=== PATIENT | male | born 1945 | race Caucasian/White ===

== ENCOUNTER 2023-04-20 15:00 | Inpatient (IN) | payer OTHER ==
[~2023-04-20] VITALS: Ht 180.3 cm; Wt 81.6 kg
[2023-04-20 15:03] VITALS: BP 132/64; PULSE 80; RESP 18; TEMP 98.1; O2SAT 96
[2023-04-20 16:40] LABS: BILIRUBIN,URINE NEGATIVE (NEGATIVE); BLOOD, URINE TRACE-I (NEGATIVE); LEUKOCYTE ESTERASE ,URINE 2+ (NEGATIVE); NITRITE, URINE NEGATIVE (NEGATIVE); PH,URINE 8.5 (5.0-9.0); PROTEIN,URINE 3+ (NEGATIVE); UGLUCOSE NEGATIVE (NEGATIVE)
[2023-04-20 16:56] LABS: APPEARANCE,URINE CLOUDY (CLEAR); BACTERIA,URINE >30 (MANY) /HPF (None Seen); COLOR,URINE AMBER (YELLOW)
[2023-04-20 16:57] LABS: CALCIUM OXALATE CRYSTALS,UR 0-10 /HPF (None Seen); CYSTINE CRYSTALS,URINE 0-10 /HPF (None Seen); MUCUS,URINE 1+ /LPF (None Seen); SQUAMOUS EPITHELIAL CELL,UR 0-3 (FEW) /LPF (0-3 (FEW)); TRIPLE PHOSPHATE CRYSTAL,UR 0-10 /HPF (None Seen); URIC ACID CRYSTALS,URINE 0-10 /HPF (None Seen)
[2023-04-20 17:06] LABS: BASOPHILS % (AUTO) 0.4 % (0.0-2.0); EOSINOPHILS # (AUTO) 0.1 K/uL (0-0.4); EOSINOPHILS % (AUTO) 1.2 % (0.0-4.0); HEMATOCRIT 45.5 % (36-52); LYMPHOCYTES # (AUTO) 2.1 K/uL (2.0-11.5); LYMPHOCYTES % (AUTO) 37.6 % (20.5-51.1); MEAN CORPUSCULAR HEMOGLOBIN 30 pg (27-31); MEAN CORPUSCULAR HGB CONC 33 g/dL (33-37); MEAN CORPUSCULAR VOLUME 91.1 fL (80-94); MONOCYTES # (AUTO) 0.5 K/uL (0.8-1.0); MONOCYTES % (AUTO) 8.6 % (1.7-9.3); NEUTROPHILS # (AUTO) 2.9 K/uL (1.8-7.7); NEUTROPHILS % (AUTO) 52.2 % (42.2-75.2); PLATELET COUNT (AUTO) 173 K/uL (140-450); RED BLOOD CELL COUNT(AUTO) 4.99 MIL/uL (4.20-6.10); RED CELL DISTRIBUTION WIDTH 15.3 % (11.6-13.7); WHITE BLOOD COUNT (AUTO) 5.6 K/uL (4.8-10.8)
[2023-04-20 17:09] LABS: ANION GAP 11.7 (8-16); CALCIUM 9.2 mg/dL (8.5-10.1); CARBON DIOXIDE 25.9 mmol/L (21-32); CHLORIDE 104 mmol/L (98-107); CREATININE 1.2 mg/dL (0.6-1.3); GLUCOSE 125 mg/dL (74-106); POTASSIUM 3.6 mmol/L (3.5-5.1); SODIUM SERUM 138 mmol/L (136-145); UREA NITROGEN, BLOOD 13 mg/dL (7-18)
[2023-04-20 17:18] LABS: CALCIUM 9.2 mg/dL (8.5-10.1); PHOSPHORUS 2.1 mg/dL (2.5-4.9)
[2023-04-20 17:21] VITALS: O2SAT 96
[2023-04-20] MEDS ORDERED: PRAV80TA17 PO (18:31)
[2023-04-20] MEDS ORDERED: TAMS0.4C96 PO (18:31)
[2023-04-20] MEDS ORDERED: FINA-54 PO (18:31)
[2023-04-20] MEDS ORDERED: FLEPED RC (18:31)
[2023-04-20] MEDS ORDERED: DOCU-299 PO (18:31)
[2023-04-20] MEDS ORDERED: ATRN INH (18:31)
[2023-04-20] MEDS ORDERED: MULT-1328 PO (18:31)
[2023-04-20] MEDS ORDERED: ASPI-1822 PO (18:31)
[2023-04-20] MEDS ORDERED: ASCO500T95 PO (18:31)
[2023-04-20] MEDS ORDERED: GLUC1VIA (18:31)
[2023-04-20] MEDS ORDERED: AMLO-309 PO (18:31)
[2023-04-20] MEDS ORDERED: SCOP0.333 TP (18:31)
[2023-04-20] MEDS ORDERED: ALLO100T21 PO (18:31)
[2023-04-20] MEDS ORDERED: MAGN400S60 PO (18:31)
[2023-04-20] MEDS ORDERED: CRAN450T5 PO (18:31)
[2023-04-20] MEDS ORDERED: LEVO0.124 PO (18:31)
[2023-04-20] MEDS ORDERED: MULT-1868 PO (18:31)
[2023-04-20] MEDS ORDERED: POTA10TA70 PO (18:31)
[2023-04-20] MEDS ORDERED: SLIDE SUBQ (18:31)
[2023-04-20] MEDS ORDERED: cefTRIAXone 1,000 MG VIAL ONE (18:43)
[2023-04-20 22:00] VITALS: BP 146/70; PULSE 78; RESP 18; TEMP 97.6; O2SAT 98
[2023-04-20] MEDS ORDERED: HYDROcodone/APAP 5/325 MG 1 TAB TAB PO PRN (22:00)
[2023-04-20] MEDS ORDERED: ACETAMINOPHEN 325 MG TAB PO PRN (22:00)
[2023-04-20] MEDS ORDERED: SODIUM PHOSPHATE PEDIATRIC 67.5 ML ENEM RC PRN (22:00)
[2023-04-20] MEDS ORDERED: LORazepam 2 MG/ML VIAL IVP PRN (22:00)
[2023-04-20 23:00] VITALS: PULSE 78; RESP 18
[2023-04-21] MEDS ORDERED: IPRATROPIUM 0.02% 0.5 MG/2.5 ML NEBU INH SCH
[2023-04-21 04:06] VITALS: BP 127/69; PULSE 88; RESP 16; TEMP 98.2; O2SAT 99
[2023-04-21] MEDS: LEVOTHYROXINE 0.025 MG TAB PO SCH (05:37)
[2023-04-21 06:56] LABS: BASOPHILS % (AUTO) 0.4 % (0.0-2.0); EOSINOPHILS % (AUTO) 0.4 % (0.0-4.0); HEMATOCRIT 38.5 % (36-52); HEMOGLOBIN 12.8 g/dL (12.0-18.0); LYMPHOCYTES # (AUTO) 1.7 K/uL (2.0-11.5); LYMPHOCYTES % (AUTO) 31.6 % (20.5-51.1); MEAN CORPUSCULAR HEMOGLOBIN 30 pg (27-31); MEAN CORPUSCULAR HGB CONC 33 g/dL (33-37); MEAN CORPUSCULAR VOLUME 90.4 fL (80-94); MONOCYTES # (AUTO) 0.5 K/uL (0.8-1.0); MONOCYTES % (AUTO) 9.2 % (1.7-9.3); NEUTROPHILS # (AUTO) 3.1 K/uL (1.8-7.7); NEUTROPHILS % (AUTO) 58.4 % (42.2-75.2); PLATELET COUNT (AUTO) 176 K/uL (140-450); RED BLOOD CELL COUNT(AUTO) 4.26 MIL/uL (4.20-6.10); RED CELL DISTRIBUTION WIDTH 15.1 % (11.6-13.7); WHITE BLOOD COUNT (AUTO) 5.3 K/uL (4.8-10.8)
[2023-04-21] MEDS ORDERED: SODIUM PHOSPHATE 118 ML ENEM RC PRN (07:20)
[2023-04-21 07:36] LABS: ANION GAP 16.5 (8-16); CALCIUM 8.4 mg/dL (8.5-10.1); CARBON DIOXIDE 21.7 mmol/L (21-32); CHLORIDE 106 mmol/L (98-107); CREATININE 1.2 mg/dL (0.6-1.3); GLUCOSE 140 mg/dL (74-106); POTASSIUM 3.2 mmol/L (3.5-5.1); SODIUM SERUM 141 mmol/L (136-145); UREA NITROGEN, BLOOD 14 mg/dL (7-18)
[2023-04-21] MEDS ORDERED: NON-FORMULARY ITEM (Cranberry Fruit (Cranberry) 1 TAB) PO SCH (09:00)
[2023-04-21] MEDS ORDERED: AMLODIPINE PO SCH (09:00)
[2023-04-21] MEDS ORDERED: NON-FORMULARY ITEM (Multivitamin with Minerals (Multivitamins with Minerals) 1 TAB) PO SCH (09:00)
[2023-04-21] MEDS ORDERED: POTASSIUM CHLORIDE 10 MEQ TABER PO SCH ×2 (09:00)
[2023-04-21] MEDS ORDERED: CALCIUM GLUC 1 GM/50 mL NS BAG 50 ML IV SCH (09:00)
[2023-04-21] MEDS ORDERED: ATORVASTATIN PO SCH (09:00)
[2023-04-21] MEDS: ATORVASTATIN 20 MG TAB PO SCH (09:01)
[2023-04-21] MEDS: allopurinoL 100 MG TAB PO SCH (09:02)
[2023-04-21] MEDS: TAMSULOSIN 0.4 MG CAP PO SCH (09:02)
[2023-04-21] MEDS: amLODIPine 5 MG TAB PO SCH (09:02)
[2023-04-21] MEDS: ASPIRIN 81 MG TAB.CHEW PO SCH (09:03)
[2023-04-21] MEDS: FINASTERIDE 5 MG TAB PO SCH (09:04)
[2023-04-21] MEDS: MULTIVITAMIN/MINERALS 1 TAB PO SCH (09:04)
[2023-04-21] MEDS: MAGNESIUM HYDROXIDE 2400 MG/30 ML UDC PO SCH (09:14)
[2023-04-21] MEDS: DOCUSATE SODIUM 100 MG GELCAP PO SCH (09:15)
[2023-04-21] MEDS ORDERED: CRUSHER, PILL MC ONE (09:18)
[2023-04-21] MEDS: ASCORBIC ACID 500 MG TAB PO SCH (09:19)
[2023-04-21 10:46] VITALS: PULSE 79; RESP 18; O2SAT 98
[2023-04-21 10:57] VITALS: BP 150/71; PULSE 79; RESP 18; TEMP 98.1; O2SAT 98
[2023-04-21] MEDS: POTASSIUM CHLORIDE 10 MEQ TABER PO SCH ×2 (13:18→13:19)
[2023-04-21 17:48] VITALS: BP 150/71; PULSE 79; RESP 18; TEMP 98.1; O2SAT 98
[2023-04-21 20:00] VITALS: BP 135/60; PULSE 72; RESP 18; TEMP 97.7; O2SAT 100; O2SAT 72
[2023-04-22 02:08] VITALS: BP 135/60; PULSE 72; RESP 18; TEMP 97.7; O2SAT 100
[2023-04-22] MEDS: LEVOTHYROXINE 0.025 MG TAB PO SCH (06:10)
[2023-04-22 06:49] LABS: BASOPHILS % (AUTO) 0.4 % (0.0-2.0); EOSINOPHILS % (AUTO) 0.7 % (0.0-4.0); HEMATOCRIT 38.2 % (36-52); HEMOGLOBIN 12.7 g/dL (12.0-18.0); LYMPHOCYTES # (AUTO) 1.5 K/uL (2.0-11.5); LYMPHOCYTES % (AUTO) 22.2 % (20.5-51.1); MEAN CORPUSCULAR HEMOGLOBIN 30 pg (27-31); MEAN CORPUSCULAR HGB CONC 33 g/dL (33-37); MEAN CORPUSCULAR VOLUME 90.3 fL (80-94); MONOCYTES # (AUTO) 0.6 K/uL (0.8-1.0); MONOCYTES % (AUTO) 8.5 % (1.7-9.3); NEUTROPHILS # (AUTO) 4.5 K/uL (1.8-7.7); NEUTROPHILS % (AUTO) 68.2 % (42.2-75.2); PLATELET COUNT (AUTO) 162 K/uL (140-450); RED BLOOD CELL COUNT(AUTO) 4.23 MIL/uL (4.20-6.10); RED CELL DISTRIBUTION WIDTH 15.2 % (11.6-13.7); WHITE BLOOD COUNT (AUTO) 6.6 K/uL (4.8-10.8)
[2023-04-22 07:21] LABS: ANION GAP 15.5 (8-16); CALCIUM 8.8 mg/dL (8.5-10.1); CHLORIDE 106 mmol/L (98-107); CREATININE 1.3 mg/dL (0.6-1.3); GLUCOSE 127 mg/dL (74-106); POTASSIUM 3.5 mmol/L (3.5-5.1); SODIUM SERUM 141 mmol/L (136-145); UREA NITROGEN, BLOOD 13 mg/dL (7-18)
[2023-04-22 08:00] VITALS: BP 141/66; PULSE 79; RESP 18; TEMP 98.7; O2SAT 100; O2SAT 98
[2023-04-22] MEDS: ASPIRIN 81 MG TAB.CHEW PO SCH (08:41)
[2023-04-22] MEDS: MULTIVITAMIN/MINERALS 1 TAB PO SCH (08:41)
[2023-04-22] MEDS: FINASTERIDE 5 MG TAB PO SCH (08:42)
[2023-04-22] MEDS: DOCUSATE SODIUM 100 MG GELCAP PO SCH (08:42)
[2023-04-22] MEDS: amLODIPine 5 MG TAB PO SCH (08:42)
[2023-04-22] MEDS: ASCORBIC ACID 500 MG TAB PO SCH (08:43)
[2023-04-22] MEDS: TAMSULOSIN 0.4 MG CAP PO SCH (08:43)
[2023-04-22] MEDS: ATORVASTATIN 20 MG TAB PO SCH (08:43)
[2023-04-22] MEDS: POTASSIUM CHLORIDE 10 MEQ TABER PO SCH (08:43)
[2023-04-22] MEDS: allopurinoL 100 MG TAB PO SCH (08:44)
[2023-04-22] MEDS: MAGNESIUM HYDROXIDE 2400 MG/30 ML UDC PO SCH (08:58)
[2023-04-22 20:00] VITALS: BP 150/69; PULSE 95; RESP 17; TEMP 98.2; O2SAT 97
[2023-04-23 04:00] VITALS: BP 137/73; PULSE 104; RESP 17; TEMP 97.7; O2SAT 98
[2023-04-23] MEDS: ONDANSETRON 4 MG/2 ML VIAL IVP PRN ×3 (05:31→20:16)
[2023-04-23] MEDS: LEVOTHYROXINE 0.025 MG TAB PO SCH (05:44)
[2023-04-23 06:51] LABS: CALCIUM 9.3 mg/dL (8.5-10.1); CARBON DIOXIDE 19.5 mmol/L (21-32); CREATININE 1.4 mg/dL (0.6-1.3); GLUCOSE 198 mg/dL (74-106); UREA NITROGEN, BLOOD 16 mg/dL (7-18)
[2023-04-23 07:15] LABS: BASOPHILS % (AUTO) 0.1 % (0.0-2.0); HEMATOCRIT 40.1 % (36-52); HEMOGLOBIN 13.3 g/dL (12.0-18.0); LYMPHOCYTES # (AUTO) 1.7 K/uL (2.0-11.5); LYMPHOCYTES % (AUTO) 14.8 % (20.5-51.1); MEAN CORPUSCULAR HEMOGLOBIN 30 pg (27-31); MEAN CORPUSCULAR HGB CONC 33 g/dL (33-37); MEAN CORPUSCULAR VOLUME 90.1 fL (80-94); MONOCYTES # (AUTO) 0.5 K/uL (0.8-1.0); MONOCYTES % (AUTO) 4.6 % (1.7-9.3); NEUTROPHILS % (AUTO) 80.5 % (42.2-75.2); PLATELET COUNT (AUTO) 204 K/uL (140-450); RED BLOOD CELL COUNT(AUTO) 4.45 MIL/uL (4.20-6.10); RED CELL DISTRIBUTION WIDTH 14.9 % (11.6-13.7); WHITE BLOOD COUNT (AUTO) 11.2 K/uL (4.8-10.8)
[2023-04-23 08:00] VITALS: BP 160/82; PULSE 104; RESP 18; TEMP 97.7; O2SAT 97; O2SAT 99
[2023-04-23 08:13] LABS: ANION GAP 13.5 (8-16); CHLORIDE 107 mmol/L (98-107); SODIUM SERUM 137 mmol/L (136-145)
[2023-04-23] MEDS: ATORVASTATIN 20 MG TAB PO SCH (08:21)
[2023-04-23] MEDS: allopurinoL 100 MG TAB PO SCH (08:22)
[2023-04-23] MEDS: TAMSULOSIN 0.4 MG CAP PO SCH (08:22)
[2023-04-23] MEDS: POTASSIUM CHLORIDE 10 MEQ TABER PO SCH (08:22)
[2023-04-23] MEDS: ASPIRIN 81 MG TAB.CHEW PO SCH (08:22)
[2023-04-23] MEDS: MULTIVITAMIN/MINERALS 1 TAB PO SCH (08:22)
[2023-04-23] MEDS: ASCORBIC ACID 500 MG TAB PO SCH (08:22)
[2023-04-23] MEDS: amLODIPine 5 MG TAB PO SCH (08:23)
[2023-04-23] MEDS: FINASTERIDE 5 MG TAB PO SCH (08:23)
[2023-04-23] MEDS: SCOPOLAMINE 1.5 MG/72 HR PATCH TD SCH (08:37)
[2023-04-23] MEDS: MAGNESIUM HYDROXIDE 2400 MG/30 ML UDC PO SCH (09:00)
[2023-04-23] MEDS: DOCUSATE SODIUM 100 MG GELCAP PO SCH (09:00)
[2023-04-23] MEDS ORDERED: POTASSIUM CHLORIDE 10 MEQ TABER PO SCH (09:36)
[2023-04-23 13:37] VITALS: TEMP 97.7
[2023-04-23 16:00] VITALS: BP 161/64; PULSE 92; RESP 20; TEMP 98.2; O2SAT 100
[2023-04-23 20:00] VITALS: BP 170/83; PULSE 101; RESP 19; TEMP 97.3; O2SAT 100
[2023-04-23] MEDS: MEROPENEM 1,000 MG in NACL 0.9% 50 ML IV SCH (20:16)
[2023-04-23] MEDS: CLONIDINE HYDROCHLORIDE 0.1 MG TAB PO PRN (20:41)
[2023-04-23 22:11] VITALS: BP 137/70; PULSE 93; RESP 18; TEMP 98.8; O2SAT 100
[2023-04-24 04:00] VITALS: BP 107/57; PULSE 76; RESP 18; TEMP 98.9; O2SAT 98
[2023-04-24] MEDS: LEVOTHYROXINE 0.025 MG TAB PO SCH (05:34)
[2023-04-24] MEDS: MEROPENEM 1,000 MG in NACL 0.9% 50 ML IV SCH ×3 (05:34→22:11)
[2023-04-24 07:07] LABS: BASOPHILS % (AUTO) 0.2 % (0.0-2.0); HEMATOCRIT 33.7 % (36-52); HEMOGLOBIN 11.4 g/dL (12.0-18.0); LYMPHOCYTES # (AUTO) 1.7 K/uL (2.0-11.5); LYMPHOCYTES % (AUTO) 23.8 % (20.5-51.1); MEAN CORPUSCULAR HEMOGLOBIN 30 pg (27-31); MEAN CORPUSCULAR HGB CONC 34 g/dL (33-37); MEAN CORPUSCULAR VOLUME 89.2 fL (80-94); MONOCYTES # (AUTO) 0.6 K/uL (0.8-1.0); NEUTROPHILS # (AUTO) 4.8 K/uL (1.8-7.7); PLATELET COUNT (AUTO) 180 K/uL (140-450); RED BLOOD CELL COUNT(AUTO) 3.78 MIL/uL (4.20-6.10); RED CELL DISTRIBUTION WIDTH 14.6 % (11.6-13.7); WHITE BLOOD COUNT (AUTO) 7.2 K/uL (4.8-10.8)
[2023-04-24 07:36] LABS: ANION GAP 14.5 (8-16); CALCIUM 9.1 mg/dL (8.5-10.1); CARBON DIOXIDE 22.3 mmol/L (21-32); CHLORIDE 107 mmol/L (98-107); CREATININE 1.6 mg/dL (0.6-1.3); GLUCOSE 201 mg/dL (74-106); POTASSIUM 3.8 mmol/L (3.5-5.1); SODIUM SERUM 140 mmol/L (136-145); UREA NITROGEN, BLOOD 19 mg/dL (7-18)
[2023-04-24 08:00] VITALS: BP 124/66; PULSE 70; RESP 18; TEMP 97.2; O2SAT 100
[2023-04-24] MEDS: ATORVASTATIN 20 MG TAB PO SCH (08:18)
[2023-04-24] MEDS: ASCORBIC ACID 500 MG TAB PO SCH (08:18)
[2023-04-24] MEDS: ASPIRIN 81 MG TAB.CHEW PO SCH (08:18)
[2023-04-24] MEDS: TAMSULOSIN 0.4 MG CAP PO SCH (08:18)
[2023-04-24] MEDS: allopurinoL 100 MG TAB PO SCH (08:19)
[2023-04-24] MEDS: POTASSIUM CHLORIDE 10 MEQ TABER PO SCH ×3 (08:19→09:56)
[2023-04-24] MEDS: amLODIPine 5 MG TAB PO SCH (08:19)
[2023-04-24] MEDS: FINASTERIDE 5 MG TAB PO SCH (08:19)
[2023-04-24] MEDS: MULTIVITAMIN/MINERALS 1 TAB PO SCH (08:19)
[2023-04-24] MEDS: DOCUSATE SODIUM 100 MG GELCAP PO SCH (08:38)
[2023-04-24] MEDS: MAGNESIUM HYDROXIDE 2400 MG/30 ML UDC PO SCH (08:38)
[2023-04-24] MEDS: ONDANSETRON 4 MG/2 ML VIAL IVP PRN (09:05)
[2023-04-24 09:08] VITALS: PULSE 70; RESP 18; O2SAT 100
[2023-04-24] MEDS: NACL 0.9% 1,000 ML IV SCH (13:10)
[2023-04-24 16:00] VITALS: BP 171/70; PULSE 87; RESP 18; TEMP 98.1; O2SAT 100
[2023-04-24] MEDS: CLONIDINE HYDROCHLORIDE 0.1 MG TAB PO PRN (16:04)
[2023-04-24 20:00] VITALS: PULSE 80; RESP 18
[2023-04-25 04:00] VITALS: BP 138/66; PULSE 73; RESP 18; TEMP 97.2; O2SAT 97
[2023-04-25] MEDS: MEROPENEM 1,000 MG in NACL 0.9% 50 ML IV SCH ×3 (05:50→20:36)
[2023-04-25] MEDS: LEVOTHYROXINE 0.025 MG TAB PO SCH (06:07)
[2023-04-25] MEDS: NACL 0.9% 1,000 ML IV SCH (06:45)
[2023-04-25 07:08] LABS: BASOPHILS % (AUTO) 0.1 % (0.0-2.0); HEMATOCRIT 35.5 % (36-52); HEMOGLOBIN 11.8 g/dL (12.0-18.0); LYMPHOCYTES # (AUTO) 1.4 K/uL (2.0-11.5); LYMPHOCYTES % (AUTO) 15.8 % (20.5-51.1); MEAN CORPUSCULAR HEMOGLOBIN 30 pg (27-31); MEAN CORPUSCULAR HGB CONC 33 g/dL (33-37); MEAN CORPUSCULAR VOLUME 90.7 fL (80-94); MONOCYTES # (AUTO) 0.7 K/uL (0.8-1.0); MONOCYTES % (AUTO) 7.9 % (1.7-9.3); NEUTROPHILS # (AUTO) 6.9 K/uL (1.8-7.7); NEUTROPHILS % (AUTO) 76.2 % (42.2-75.2); PLATELET COUNT (AUTO) 160 K/uL (140-450); RED BLOOD CELL COUNT(AUTO) 3.91 MIL/uL (4.20-6.10); RED CELL DISTRIBUTION WIDTH 15.1 % (11.6-13.7); WHITE BLOOD COUNT (AUTO) 9.1 K/uL (4.8-10.8)
[2023-04-25 07:35] LABS: ALANINE AMINOTRANSFERASE 8 U/L (12-78); ALBUMIN 2.6 g/dL (3.4-5.0); ALKALINE PHOSPHATASE 62 U/L (50-136); ANION GAP 16.3 (8-16); ASPARTATE AMINOTRANSFERASE 10 U/L (15-37); CALCIUM 8.9 mg/dL (8.5-10.1); CHLORIDE 112 mmol/L (98-107); CREATININE 1.3 mg/dL (0.6-1.3); GLUCOSE 179 mg/dL (74-106); MAGNESIUM 1.6 mg/dL (1.8-2.4); PHOSPHORUS 2.9 mg/dL (2.5-4.9); POTASSIUM 3.3 mmol/L (3.5-5.1); SODIUM SERUM 146 mmol/L (136-145); TOTAL BILIRUBIN 0.5 mg/dL (0.0-1.0); TOTAL PROTEIN, SERUM 6.6 g/dL (6.4-8.2); UREA NITROGEN, BLOOD 18 mg/dL (7-18)
[2023-04-25 08:00] VITALS: PULSE 85; RESP 18
[2023-04-25] MEDS ORDERED: MAG SULF 2000 MG/WATER PREMIX 50 ML IV SCH (09:00)
[2023-04-25] MEDS ORDERED: POTASSIUM CHLORIDE 10 MEQ TABER PO SCH (09:00)
[2023-04-25] MEDS: MAGNESIUM HYDROXIDE 2400 MG/30 ML UDC PO SCH (09:47)
[2023-04-25] MEDS: ATORVASTATIN 20 MG TAB PO SCH (09:48)
[2023-04-25] MEDS: allopurinoL 100 MG TAB PO SCH (09:48)
[2023-04-25] MEDS: ASPIRIN 81 MG TAB.CHEW PO SCH (09:48)
[2023-04-25] MEDS: FINASTERIDE 5 MG TAB PO SCH (09:49)
[2023-04-25] MEDS: TAMSULOSIN 0.4 MG CAP PO SCH (09:49)
[2023-04-25] MEDS: amLODIPine 5 MG TAB PO SCH (09:50)
[2023-04-25] MEDS: DOCUSATE SODIUM 100 MG GELCAP PO SCH (09:50)
[2023-04-25] MEDS: MULTIVITAMIN/MINERALS 1 TAB PO SCH (09:51)
[2023-04-25] MEDS: ASCORBIC ACID 500 MG TAB PO SCH (09:55)
[2023-04-25] MEDS ORDERED: KCL 20 MEQ IN 100 mL PREMIX 100 ML IV SCH (10:30)
[2023-04-25] MEDS ORDERED: hydrALAZINE 20 MG/ML VIAL IVP PRN (11:55)
[2023-04-25 15:34] VITALS: BP 138/66; PULSE 85; RESP 18; TEMP 97.2
[2023-04-25] MEDS ORDERED: MERO1VIA15 IV (15:58)
[2023-04-25] MEDS: hydrALAZINE 20 MG/ML VIAL IVP PRN (17:13)
[2023-04-25 20:00] VITALS: BP 173/73; PULSE 100; RESP 18; TEMP 97.9; O2SAT 99
[2023-04-26] MEDS: NACL 0.9% 1,000 ML IV SCH ×2 (02:45→05:44)
[2023-04-26 04:00] VITALS: BP 201/75; PULSE 94; RESP 18; TEMP 96.8; O2SAT 98
[2023-04-26] MEDS: MEROPENEM 1,000 MG in NACL 0.9% 50 ML IV SCH ×3 (04:00→20:30)
[2023-04-26] MEDS: hydrALAZINE 20 MG/ML VIAL IVP PRN (04:19)
[2023-04-26] MEDS: LEVOTHYROXINE 0.025 MG TAB PO SCH (06:10)
[2023-04-26 07:24] LABS: BASOPHILS % (AUTO) 0.1 % (0.0-2.0); HEMATOCRIT 41.5 % (36-52); HEMOGLOBIN 13.7 g/dL (12.0-18.0); LYMPHOCYTES # (AUTO) 1.4 K/uL (2.0-11.5); LYMPHOCYTES % (AUTO) 13.8 % (20.5-51.1); MEAN CORPUSCULAR HEMOGLOBIN 30 pg (27-31); MEAN CORPUSCULAR HGB CONC 33 g/dL (33-37); MEAN CORPUSCULAR VOLUME 90.7 fL (80-94); MONOCYTES # (AUTO) 0.6 K/uL (0.8-1.0); MONOCYTES % (AUTO) 6.1 % (1.7-9.3); NEUTROPHILS # (AUTO) 8.4 K/uL (1.8-7.7); PLATELET COUNT (AUTO) 215 K/uL (140-450); RED BLOOD CELL COUNT(AUTO) 4.57 MIL/uL (4.20-6.10); WHITE BLOOD COUNT (AUTO) 10.5 K/uL (4.8-10.8)
[2023-04-26 07:33] LABS: CALCIUM 9.9 mg/dL (8.5-10.1); CARBON DIOXIDE 23.4 mmol/L (21-32); CHLORIDE 111 mmol/L (98-107); CREATININE 1.4 mg/dL (0.6-1.3); GLUCOSE 168 mg/dL (74-106); POTASSIUM 3.4 mmol/L (3.5-5.1); SODIUM SERUM 149 mmol/L (136-145); UREA NITROGEN, BLOOD 19 mg/dL (7-18)
[2023-04-26 08:00] VITALS: PULSE 85; RESP 18
[2023-04-26] MEDS: TAMSULOSIN 0.4 MG CAP PO SCH (09:00)
[2023-04-26] MEDS: ASCORBIC ACID 500 MG TAB PO SCH (09:00)
[2023-04-26] MEDS: amLODIPine 5 MG TAB PO SCH (09:00)
[2023-04-26] MEDS: allopurinoL 100 MG TAB PO SCH (09:00)
[2023-04-26] MEDS: ATORVASTATIN 20 MG TAB PO SCH (09:00)
[2023-04-26] MEDS: FINASTERIDE 5 MG TAB PO SCH (09:00)
[2023-04-26] MEDS: POTASSIUM CHLORIDE 10 MEQ TABER PO SCH (09:00)
[2023-04-26] MEDS: ASPIRIN 81 MG TAB.CHEW PO SCH (09:00)
[2023-04-26] MEDS: MULTIVITAMIN/MINERALS 1 TAB PO SCH (09:00)
[2023-04-26] MEDS: MAGNESIUM HYDROXIDE 2400 MG/30 ML UDC PO SCH (09:00)
[2023-04-26] MEDS: DOCUSATE SODIUM 100 MG GELCAP PO SCH (09:00)
[2023-04-26] MEDS: DEXTROSE 5% 1,000 ML IV SCH ×2 (10:36→19:15)
[2023-04-26 12:00] VITALS: BP 165/67; PULSE 85; RESP 18; TEMP 96.8; O2SAT 98
[2023-04-26] MEDS ORDERED: LIDOCAINE MPF 1% 0 ML ONE (14:56)
[2023-04-26] MEDS ORDERED: fentaNYL citrate 0.05 MG/ML VIAL ONE (14:56)
[2023-04-26] MEDS ORDERED: MIDAZOLAM 5 MG/5 ML VIAL ONE (14:56)
[2023-04-26] MEDS: MIDAZOLAM 2 MG/2 ML VIAL IVP ONE ×2 (15:05→17:48)
[2023-04-26] MEDS: SCOPOLAMINE 1.5 MG/72 HR PATCH TD SCH (16:34)
[2023-04-26] MEDS ORDERED: fentaNYL citrate 0.05 MG/ML VIAL IVP SCH (17:00)
[2023-04-26 20:00] VITALS: BP 140/75; PULSE 92; RESP 17; TEMP 97.6; O2SAT 98
[2023-04-26] MEDS: PANTOPRAZOLE 40 MG INJ VIAL IVP SCH (20:30)
[2023-04-27 04:00] VITALS: BP 114/57; PULSE 104; RESP 17; TEMP 97.2; O2SAT 95
[2023-04-27] MEDS: MEROPENEM 1,000 MG in NACL 0.9% 50 ML IV SCH ×3 (04:51→20:49)
[2023-04-27] MEDS: DEXTROSE 5% 1,000 ML IV SCH ×2 (05:15→10:50)
[2023-04-27] MEDS: LEVOTHYROXINE 0.025 MG TAB PO SCH (05:58)
[2023-04-27 07:03] LABS: BASOPHILS % (AUTO) 0.2 % (0.0-2.0); EOSINOPHILS % (AUTO) 0.2 % (0.0-4.0); HEMATOCRIT 39.1 % (36-52); HEMOGLOBIN 12.9 g/dL (12.0-18.0); LYMPHOCYTES # (AUTO) 1.8 K/uL (2.0-11.5); LYMPHOCYTES % (AUTO) 21.7 % (20.5-51.1); MEAN CORPUSCULAR HEMOGLOBIN 30 pg (27-31); MEAN CORPUSCULAR HGB CONC 33 g/dL (33-37); MEAN CORPUSCULAR VOLUME 90.5 fL (80-94); MONOCYTES # (AUTO) 0.8 K/uL (0.8-1.0); MONOCYTES % (AUTO) 9.6 % (1.7-9.3); NEUTROPHILS # (AUTO) 5.5 K/uL (1.8-7.7); NEUTROPHILS % (AUTO) 68.3 % (42.2-75.2); PLATELET COUNT (AUTO) 180 K/uL (140-450); RED BLOOD CELL COUNT(AUTO) 4.32 MIL/uL (4.20-6.10); RED CELL DISTRIBUTION WIDTH 15.9 % (11.6-13.7); WHITE BLOOD COUNT (AUTO) 8.1 K/uL (4.8-10.8)
[2023-04-27 07:23] LABS: ANION GAP 11.7 (8-16); CALCIUM 9.1 mg/dL (8.5-10.1); CARBON DIOXIDE 26.1 mmol/L (21-32); CHLORIDE 109 mmol/L (98-107); CREATININE 1.7 mg/dL (0.6-1.3); GLUCOSE 250 mg/dL (74-106); SODIUM SERUM 144 mmol/L (136-145); UREA NITROGEN, BLOOD 24 mg/dL (7-18)
[2023-04-27 07:35] LABS: POTASSIUM 2.8 mmol/L (3.5-5.1)
[2023-04-27] MEDS ORDERED: MIDAZOLAM 2 MG/2 ML VIAL IVP ONE ×3 (07:50→23:00)
[2023-04-27] MEDS ORDERED: fentaNYL citrate 0.05 MG/ML VIAL IVP ONE ×3 (07:50→23:00)
[2023-04-27 08:00] VITALS: PULSE 92; RESP 17; O2SAT 98
[2023-04-27] MEDS ORDERED: POTASSIUM CHLORIDE 20% 40 MEQ/15 ML UDC PO SCH (08:07)
[2023-04-27] MEDS: PANTOPRAZOLE 40 MG INJ VIAL IVP SCH ×2 (09:12→20:49)
[2023-04-27] MEDS: TAMSULOSIN 0.4 MG CAP PO SCH (09:13)
[2023-04-27] MEDS: DOCUSATE SODIUM 100 MG GELCAP PO SCH (09:13)
[2023-04-27] MEDS: ASPIRIN 81 MG TAB.CHEW PO SCH (09:13)
[2023-04-27] MEDS: ATORVASTATIN 20 MG TAB PO SCH (09:15)
[2023-04-27] MEDS: amLODIPine 5 MG TAB PO SCH (09:16)
[2023-04-27] MEDS: MAGNESIUM HYDROXIDE 2400 MG/30 ML UDC PO SCH (09:16)
[2023-04-27] MEDS: FINASTERIDE 5 MG TAB PO SCH (09:17)
[2023-04-27] MEDS: ASCORBIC ACID 500 MG TAB PO SCH (09:17)
[2023-04-27] MEDS: allopurinoL 100 MG TAB PO SCH (09:17)
[2023-04-27] MEDS: MULTIVITAMIN/MINERALS 1 TAB PO SCH (09:17)
[2023-04-27] MEDS: POTASSIUM CHLORIDE 10 MEQ TABER PO SCH (09:18)
[2023-04-27] MEDS ORDERED: LIDOCAINE MPF 1% 5 ML ONE (16:17)
[2023-04-27] MEDS ORDERED: fentaNYL citrate 0.05 MG/ML VIAL ONE (16:23)
[2023-04-27] MEDS ORDERED: MIDAZOLAM 5 MG/5 ML VIAL ONE (16:23)
[2023-04-27 18:30] VITALS: BP 155/57; PULSE 74; RESP 20; TEMP 98.5; O2SAT 95
[2023-04-27 20:00] VITALS: BP 135/66; PULSE 74; RESP 19; RESP 20; TEMP 98.5; O2SAT 95; O2SAT 98
[2023-04-28] MEDS: DEXTROSE 5% 1,000 ML IV SCH ×3 (02:37→21:15)
[2023-04-28 04:00] VITALS: BP 133/72; PULSE 74; RESP 19; TEMP 98; O2SAT 98
[2023-04-28] MEDS: MEROPENEM 1,000 MG in NACL 0.9% 50 ML IV SCH ×3 (04:25→21:02)
[2023-04-28] MEDS: LEVOTHYROXINE 0.025 MG TAB PO SCH (05:45)
[2023-04-28 07:14] LABS: BASOPHILS % (AUTO) 0.3 % (0.0-2.0); EOSINOPHILS # (AUTO) 0.1 K/uL (0-0.4); EOSINOPHILS % (AUTO) 0.9 % (0.0-4.0); HEMATOCRIT 36.2 % (36-52); HEMOGLOBIN 12.2 g/dL (12.0-18.0); LYMPHOCYTES # (AUTO) 1.6 K/uL (2.0-11.5); LYMPHOCYTES % (AUTO) 24.5 % (20.5-51.1); MEAN CORPUSCULAR HEMOGLOBIN 30 pg (27-31); MEAN CORPUSCULAR HGB CONC 34 g/dL (33-37); MEAN CORPUSCULAR VOLUME 89.4 fL (80-94); MONOCYTES # (AUTO) 0.6 K/uL (0.8-1.0); MONOCYTES % (AUTO) 8.9 % (1.7-9.3); NEUTROPHILS # (AUTO) 4.3 K/uL (1.8-7.7); NEUTROPHILS % (AUTO) 65.4 % (42.2-75.2); PLATELET COUNT (AUTO) 141 K/uL (140-450); RED BLOOD CELL COUNT(AUTO) 4.04 MIL/uL (4.20-6.10); RED CELL DISTRIBUTION WIDTH 15.6 % (11.6-13.7); WHITE BLOOD COUNT (AUTO) 6.5 K/uL (4.8-10.8)
[2023-04-28 07:38] LABS: MAGNESIUM 1.5 mg/dL (1.8-2.4); PHOSPHORUS 2.3 mg/dL (2.5-4.9)
[2023-04-28 07:55] LABS: ANION GAP 9.7 (8-16); CALCIUM 8.4 mg/dL (8.5-10.1); CARBON DIOXIDE 25.4 mmol/L (21-32); CHLORIDE 108 mmol/L (98-107); CREATININE 1.4 mg/dL (0.6-1.3); GLUCOSE 203 mg/dL (74-106); POTASSIUM 3.1 mmol/L (3.5-5.1); SODIUM SERUM 140 mmol/L (136-145); UREA NITROGEN, BLOOD 20 mg/dL (7-18)
[2023-04-28 08:00] VITALS: BP 125/66; PULSE 87; RESP 18; TEMP 97; O2SAT 100
[2023-04-28 08:28] VITALS: PULSE 78; RESP 20; O2SAT 99
[2023-04-28] MEDS: MAGNESIUM HYDROXIDE 2400 MG/30 ML UDC PO SCH (09:50)
[2023-04-28] MEDS: allopurinoL 100 MG TAB PO SCH (09:50)
[2023-04-28] MEDS: FINASTERIDE 5 MG TAB PO SCH (09:50)
[2023-04-28] MEDS: ASCORBIC ACID 500 MG TAB PO SCH (09:51)
[2023-04-28] MEDS: amLODIPine 5 MG TAB PO SCH (09:51)
[2023-04-28] MEDS: DOCUSATE SODIUM 100 MG GELCAP PO SCH (09:52)
[2023-04-28] MEDS: POTASSIUM CHLORIDE 10 MEQ TABER PO SCH (09:52)
[2023-04-28] MEDS: ASPIRIN 81 MG TAB.CHEW PO SCH (09:52)
[2023-04-28] MEDS: ATORVASTATIN 20 MG TAB PO SCH (09:52)
[2023-04-28] MEDS: PANTOPRAZOLE 40 MG INJ VIAL IVP SCH ×2 (09:54→21:01)
[2023-04-28] MEDS: TAMSULOSIN 0.4 MG CAP PO SCH (09:59)
[2023-04-28] MEDS: MULTIVITAMIN/MINERALS 1 TAB PO SCH (09:59)
[2023-04-28] MEDS ORDERED: POTASSIUM PHOSPHATE 15 MM in NACL 0.9% 250 ML IV SCH (11:15)
[2023-04-28] MEDS ORDERED: MAG SULF 2000 MG/WATER PREMIX 50 ML IV SCH (11:15)
[2023-04-28 13:05] LABS: CREATININE,URINE RANDOM 96 mg/dL (30-125); URINE SODIUM, RANDOM 34 mmol/l (40-220)
[2023-04-28 16:00] VITALS: BP 120/66; PULSE 88; RESP 18; TEMP 97.9; O2SAT 100
[2023-04-28 20:00] VITALS: BP 128/64; PULSE 102; RESP 18; TEMP 97.9; O2SAT 100
[2023-04-29] MEDS: DEXTROSE 5% 1,000 ML IV SCH (03:28)
[2023-04-29 04:00] VITALS: BP 132/68; PULSE 102; RESP 19; TEMP 98.2; O2SAT 100
[2023-04-29] MEDS: MEROPENEM 1,000 MG in NACL 0.9% 50 ML IV SCH ×2 (04:13→12:24)
[2023-04-29] MEDS: LEVOTHYROXINE 0.025 MG TAB PO SCH (05:51)
[2023-04-29 07:18] LABS: CALCIUM 8.6 mg/dL (8.5-10.1); CARBON DIOXIDE 26.3 mmol/L (21-32); CHLORIDE 107 mmol/L (98-107); CREATININE 1.3 mg/dL (0.6-1.3); GLUCOSE 222 mg/dL (74-106); POTASSIUM 3.3 mmol/L (3.5-5.1); SODIUM SERUM 138 mmol/L (136-145); UREA NITROGEN, BLOOD 15 mg/dL (7-18)
[2023-04-29 07:37] LABS: PHOSPHORUS 2.9 mg/dL (2.5-4.9)
[2023-04-29 08:00] VITALS: PULSE 102; RESP 18; O2SAT 100
[2023-04-29 08:01] LABS: BASOPHILS % (AUTO) 0.3 % (0.0-2.0); EOSINOPHILS # (AUTO) 0.1 K/uL (0-0.4); EOSINOPHILS % (AUTO) 2.9 % (0.0-4.0); HEMATOCRIT 37.1 % (36-52); HEMOGLOBIN 12.3 g/dL (12.0-18.0); LYMPHOCYTES # (AUTO) 1.3 K/uL (2.0-11.5); LYMPHOCYTES % (AUTO) 26.5 % (20.5-51.1); MEAN CORPUSCULAR HEMOGLOBIN 30 pg (27-31); MEAN CORPUSCULAR HGB CONC 33 g/dL (33-37); MEAN CORPUSCULAR VOLUME 90.7 fL (80-94); MONOCYTES # (AUTO) 0.6 K/uL (0.8-1.0); MONOCYTES % (AUTO) 11.4 % (1.7-9.3); NEUTROPHILS # (AUTO) 2.9 K/uL (1.8-7.7); NEUTROPHILS % (AUTO) 58.9 % (42.2-75.2); PLATELET COUNT (AUTO) 113 K/uL (140-450); RED BLOOD CELL COUNT(AUTO) 4.09 MIL/uL (4.20-6.10); RED CELL DISTRIBUTION WIDTH 15.5 % (11.6-13.7); WHITE BLOOD COUNT (AUTO) 4.9 K/uL (4.8-10.8)
[2023-04-29] MEDS ORDERED: DOCUSATE 100 MG/10 ML UDC GT SCH (09:00)
[2023-04-29] MEDS ORDERED: POTASSIUM CHLORIDE 20% 40 MEQ/15 ML UDC GT SCH ×2 (09:00→10:42)
[2023-04-29] MEDS: PANTOPRAZOLE 40 MG INJ VIAL IVP SCH (10:26)
[2023-04-29] MEDS: ASPIRIN 81 MG TAB.CHEW PO SCH (10:26)
[2023-04-29] MEDS: ATORVASTATIN 20 MG TAB PO SCH (10:29)
[2023-04-29] MEDS: FINASTERIDE 5 MG TAB PO SCH (10:29)
[2023-04-29] MEDS: MAGNESIUM HYDROXIDE 2400 MG/30 ML UDC PO SCH (10:29)
[2023-04-29] MEDS: amLODIPine 5 MG TAB PO SCH (10:29)
[2023-04-29] MEDS: allopurinoL 100 MG TAB PO SCH (10:30)
[2023-04-29] MEDS: MULTIVITAMIN/MINERALS 1 TAB PO SCH (10:30)
[2023-04-29] MEDS: SCOPOLAMINE 1.5 MG/72 HR PATCH TD SCH (10:33)
[2023-04-29] MEDS: TAMSULOSIN 0.4 MG CAP PO SCH (10:37)
[2023-04-29] MEDS: ASCORBIC ACID 500 MG TAB PO SCH (10:43)
[2023-04-29 13:16] VITALS: BP 130/71; PULSE 82
== END 2023-04-29 13:45 | DRG 871 ==
LOC: MED 15:00 → MMU 18:16 → MTU 20:29
PROVIDERS: ADMIT Preventive Medicine Preventive Medicine/Occupational Environmental Medicine; ATTEND Preventive Medicine Preventive Medicine/Occupational Environmental Medicine
PROC: 02HV33Z Insertion of Infusion Device into Superior Vena Cava, Percutaneous Approach (ICD-10-PCS; 2023-04-25)
PROC: B548ZZA Ultrasonography of Superior Vena Cava, Guidance (ICD-10-PCS; 2023-04-25)
PROC: 0D758ZZ Dilation of Esophagus, Via Natural or Artificial Opening Endoscopic (ICD-10-PCS; principal; 2023-04-26 14:20)
PROC: 0D758ZZ Dilation of Esophagus, Via Natural or Artificial Opening Endoscopic (ICD-10-PCS; 2023-04-27)
PROC: 0DH63UZ Insertion of Feeding Device into Stomach, Percutaneous Approach (ICD-10-PCS; 2023-04-27)
DX: A41.9 Sepsis, unspecified organism (principal); N17.0 Acute kidney failure with tubular necrosis; N39.0 Urinary tract infection, site not specified; Z16.12 Extended spectrum beta lactamase (ESBL) resistance; E87.1 Hypo-osmolality and hyponatremia; E87.6 Hypokalemia; E83.39 Other disorders of phosphorus metabolism; N40.0 Benign prostatic hyperplasia without lower urinary tract symptoms; E03.9 Hypothyroidism, unspecified; K59.00 Constipation, unspecified; I10 Essential (primary) hypertension; E11.65 Type 2 diabetes mellitus with hyperglycemia; E88.09 Other disorders of plasma-protein metabolism, not elsewhere classified; D69.6 Thrombocytopenia, unspecified; D64.9 Anemia, unspecified; E83.42 Hypomagnesemia; B96.20 Unspecified Escherichia coli [E. coli] as the cause of diseases classified elsewhere; E78.5 Hyperlipidemia, unspecified; E87.5 Hyperkalemia; E83.52 Hypercalcemia; K22.2 Esophageal obstruction; R13.10 Dysphagia, unspecified; M10.9 Gout, unspecified; Z93.1 Gastrostomy status
CPT/HCPCS: 36415; 43248; 71045; 80048; 80053; 81001; 82310; 82570; 83735; 84100; 84300; 85025; 85651; 86140; 87081; 87086; 92526; 96365; 97110; 97112; 97116; 97530; 99285; C9113; J0360; J0610; J0696; J2001; J2185; J2250; J2405; J3010; J3475; J3480; J7030; J7060; Q0092